=== PATIENT | male | born 1985 | race Hispanic/Latino ===

== ENCOUNTER 2018-01-08 05:18 | Emergency (ER) | payer OTHER ==
[2018-01-08 05:31] VITALS: BP 149/88; RESP 19; TEMP 97.8; O2SAT 100
--- NOTE | 2018-01-08 06:44 | ED PDOC ---
HPI: General Adult Time Seen by Provider: 01/08/18 05:37 Chief Complaint (Nursing): Anxiety Chief Complaint (Provider): Anxiety History Per: Patient History/Exam Limitations: no limitations Onset/Duration Of Symptoms: Hrs (02:00) Current Symptoms Are (Timing): Better Additional Complaint(s): Goldy Lopez is a 32 year old male, with no significant past medical history, who presents to the emergency department stating around 02:00 he woke up from sleep feeling body warmth and a sense of impeding doom, he could not fall back asleep. Patient states he just came back from [facility] a few days ago, he has been jetlagged and there's been stress at home. Patient has been drinking more than normal but not excessive. Upon arrival he started to feel better. He denies any suicidal or homicidal ideation, no drug use or excessive caffeine use. No further medical complaints. PMD: None provided. Past Medical History Reviewed: Historical Data, Nursing Documentation, Vital Signs Vital Signs: Last Vital Signs Temp 97.8 F 01/08/18 05:29 Pulse 113 H 01/08/18 05:29 Resp 19 01/08/18 05:29 BP 149/88 01/08/18 05:29 Pulse Ox 100 01/08/18 06:46 - Medical History PMH: No Chronic Diseases - Surgical History Surgical History: No Surg Hx - Family History Family History: States: Unknown Family Hx - Social History Current smoker - smoking cessation education provided: No Alcohol: Social Drugs: Denies - Allergies Allergies/Adverse Reactions: Allergies Allergy/AdvReac Type Severity Reaction Status Date / Time No Known Allergies Allergy Verified 01/08/18 05:31 Review of Systems ROS Statement: Except As Marked, All Systems Reviewed And Found Negative Psych: Positive for: Anxiety Physical Exam - Reviewed Nursing Documentation Reviewed: Yes Vital Signs Reviewed: Yes - Physical Exam Appears: Positive for: No Acute Distress Head Exam: Positive for: ATRAUMATIC, NORMAL INSPECTION, NORMOCEPHALIC Skin: Positive for: Normal Color, Warm, Dry Eye Exam: Positive for: Normal appearance, EOMI, PERRL Neck: Positive for: Painless ROM Cardiovascular/Chest: Positive for: Regular Rate, Rhythm. Negative for: Murmur Respiratory: Positive for: Normal Breath Sounds. Negative for: Respiratory Distress Gastrointestinal/Abdominal: Positive for: Normal Exam, Soft. Negative for: Tenderness Back: Positive for: Normal Inspection Extremity: Positive for: Normal ROM (upper and lower extremities). Negative for : Deformity, Swelling Neurologic/Psych: Positive for: Alert, Oriented - ECG O2 Sat by Pulse Oximetry: 100 (RA) Pulse Ox Interpretation: Normal Medical Decision Making Medical Decision Making: Time: 05:37 A/P: 32 y/o male presenting with panic attack. Current symptoms multifactorial, likely sleep deprivation with family stressors with possible holiday heart syndrome Initial Plan: --Xanax 0.5 mg PO --Reevaluation 650AM Patient is feeling much better, HR 90. Advised to take rest, drink plenty of fluids. ----- Scribe Attestation: Documented by Kermit Frankel, acting as a scribe for Augusto Kidd MD. Provider Scribe Attestation: All medical record entries made by the Scribe were at my direction and personally dictated by me. I have reviewed the chart and agree that the record accurately reflects my personal performance of the history, physical exam, medical decision making, and the department course for this patient. I have also personally directed, reviewed, and agree with the discharge instructions and disposition. Disposition - Clinical Impression Clinical Impression: Anxiety - Patient ED Disposition Is Patient to be Admitted: No - Disposition Referrals: Jazzy [facility] [Outside] Disposition: Routine/Home Disposition Time: 06:59 Condition: STABLE Instructions: Anxiety, Adult (DC) Forms: Pict (Sami)
[2018-01-08 07:14] VITALS: PULSE 84
== END 2018-01-08 07:14 | disposition home or self-care (01) ==
LOC: H.ER 05:18
DX: F41.0 Panic disorder [episodic paroxysmal anxiety] (principal)